=== PATIENT | male | born 1980 | race Caucasian/White ===

== ENCOUNTER 2020-06-20 13:56 | Outpatient (CLI) | payer OTHER ==
--- NOTE | 2020-06-20 11:05 | SLEEP CARE CONSULTATION ---
Information from patient questionnaire entered by Bailey Chan. I have reviewed and concur with the information entered by Bailey Chan. This document represents the service I personally performed and the decisions made by me, Anastacia Lea MD, [facility]. History of Present Illness Service Date and Time: 06/20/2020 1020 Reason for Visit: New patient, Previously diagnosed sleep apnea, sleep apnea on CPAP therapy Chief Complaint: reports: Snoring, Other (needs MWT) Date of Onset: 1-2 years Usual bedtime: 10 pm Time it takes to fall asleep: 10-30 minutes Snores at night: Yes Observed to quit breathing while asleep: No Sleeps alone due to snoring: No Number of times waking at night: 1-2 Reasons for waking at night: reports: Bathroom, Other (dog) Toss, Turn, or Twitch while sleeping: No Recalls having dreams: No (sometimes) Usually gets out of bed at: 8-9 am Feels refreshed in the morning: No Morning headache: No Sleepy or fatigued during the day: Yes (sometimes) Ever fallen asleep while driving: No Takes day naps: No (sometimes) Dreams during day naps: No Prior sleep studies: Yes Year and Where: 2019 - [facility] Type of Sleep Study: Polysomnography Additional HPI information: To minimize the risk of COVID-19 exposure, the patient has requested and consented to this telephone visit. The patient also agrees to having his insurance billed. I had the pleasure of seeing Mr. Palma today regarding obstructive sleep apnea- hypopnea. As you know, he is a 39 year old gentleman who was diagnosed with the sleep-disordered breathing at the [facility] in [place] in July of this year. The AHI was 16.1. He only slept supine during the study. He was prescribed a CPAP. His machine is a [employer]Med [id number]. He wears a nasal mask. He uses the device almost every night with noticeable improvement. The compliance data are not available. Because he would like to fly for airlines, he is requesting a maintenance of wakefulness test (MWT). He denies feeling sleepy during the day. - Parasomnia Symptoms Ever been unable to move upon waking from sleep: No Ever felt weak in the knees when startled or emotional: No Bothered by creepy, crawly, restless sensations in legs: No Problems with memory or concentration: No Subjective Initial [place] Sleepiness Scale score: 6 (in 2020) Social History The patient's occupation is a Active . Patient is Single and lives in [place], [place]. Have you smoked in the past 12 months: No Cigarettes per day (20/pack): 10 Years of smokin (on and off) Smoking Pack Years: 1.5 Alcohol use: Yes Alcohol amount and frequency: 1-2 drinks occasionally Caffeine use: Yes Caffeine amount and frequency: 1 - 2 cups of coffee a day, occasional coke in afternoon Family History Family history of sleep disordered breathing: Yes (father, sister) Family Hx Sleep Apnea: Father: Sleep apnea - Treated (on CPAP), Sibling: Sleep apnea - Treated Allergies and Home Medications Drug allergies reviewed: Yes Home medication list reviewed: Yes Review of Systems Cardiovascular: denies: high blood pressure, palpitations, chest pain, irregular heart rate or pulse, leg or foot swelling, have to sleep sitting up, other Respiratory: denies: shortness of breath, wheeze, sputum production, chronic cough, other Gastrointestinal: denies: heartburn, difficulty swallowing, nausea, vomitting, diarrhea, abdominal pain, other Urinary: denies: incontinence, frequency, urgency, impotence, other Neurological: denies: headaches, seizure, head trauma, disorientation, speech dysfunction, gait or balance problems, fainting or unconsciousness, other Psychiatric: denies: Attention Deficit Hyperactivity, anxiety, depression, mood disorder, claustrophobia, other Ear/Nose/Throat: denies: nasal congestion, sinus problems, nose bleeds, dry mouth/throat, hoarseness, injury to nose, tonsillectomy, wisdom teeth removed, other Endocrine: denies: thyroid disease, history of goiter, sluggishness, too hot or cold, excessive thirst, increased appetite, increased urination, unexplained weakness, other Musculoskeletal: denies: joint pain, neck pain, back pain, joint swelling, muscle pain or cramping, mobility problems, other Immunologic: denies: sneezing, rash, itching, allergies to food or environment, other Physical Exam Vital signs obtained and entered by: N/A Height: 5 ft 8 in Weight: 190 lb Body Mass Index: 28.8 BMI Classification: Overweight Impression and Plan IMPRESSION: 1. Obstructive Sleep Apnea-Hypopnea Syndrome, moderate, as previously diagnosed. According to him, he has been compliant with the positive airway pressure therapy. The effectiveness of the treatment is unknown as we do not have access to his [employer] account. He denies feeling sleepy during the day. We will proceed with the maintenance of wakefulness test (MWT) as requested. In the future, he may want to be retested for the sleep-disordered breathing while sleeping on his side or prone. Plan: 1. Schedule a maintenance of wakefulness test (MWT). 2. Return in 1 to 2 weeks after the study to discuss results. Visit Type: Telehealth Video Video Type: Doximity Patient Location: Home Location of Provider: Office Patient agrees and consents to this telehealth visit type: Yes Patient agrees to have their insurance billed: Yes Provider Statement: I spent 100% of the Telehealth Video Call with the patient with greater than 50% spent counseling the patient and coordination of care.
== END 2020-06-20 13:57 | disposition home or self-care (01) ==
LOC: SC 13:56
PROVIDERS: ATTEND Internal Medicine Pulmonary Disease
DX: G47.33 Obstructive sleep apnea (adult) (pediatric) (principal); E66.3 Overweight; Z68.28 Body mass index [BMI] 28.0-28.9, adult